=== PATIENT | male | born 1985 | race Two or more races ===

== ENCOUNTER 2019-10-17 22:09 | Emergency (ER) | payer SELFPAY ==
[~2019-10-17] VITALS: Ht 160 cm; Wt 65.8 kg
[2019-10-17 22:10] VITALS: BP 134/86
--- NOTE | 2019-10-17 22:10 | NUR ---
ED Nurse Note: Pt brought into ED by ALEJANDRA RA 28 for alochol intoxication. Per ALEJANDRA, pt was found on the grass in a neighbors yard who called 911. Pt is awake and alert and speaking in full sentences. Pt is not being cooperative with giving staff his name or any information. Pt is ambulatory with steady gait. Pt is breathing normal and unlabored, NAD noted.
--- NOTE | 2019-10-17 22:10 | NUR ---
ED Nurse Note: Pt has no complaints and denies any pain.
--- NOTE | 2019-10-17 22:15 | NUR ---
ED Nurse Note: Pt is requesting to leave ED. ERMD aware. Pt is able to ambulate with steady gait. Pt notes his friend will pick him up.
--- NOTE | 2019-10-17 22:15 | NUR ---
ED Nurse Note: Pt is refusing any further interventions.
[2019-10-17 22:30] VITALS: BP 134/86
--- NOTE | 2019-10-17 22:30 | NUR ---
ED Nurse Note: Pt is cleared to be DC by JOSE E Devries. Pt is aaox4, vital signs are stable and pt is ambulatory with steady gait. Pt walked out of ED and refused to sign paperwork. Pt is in no acute distress and took all belongings. Pt ID band removed.
--- NOTE | 2019-10-18 04:01 | Emergency Room Report ---
History of Present Illness General Chief Complaint: Alcohol Intoxication Source: Patient Present Illness HPI Notified male brought to ED for alcohol intoxication. Witnessed by bystanders as intoxicated. Brought in by EMS. Patient refusing to provide his name. Admits to alcohol use. Denies drug use. Denies nausea or vomiting. Denies abdominal pain. No other aggravating relieving factors. 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: No Patient History Past Medical History: none Past Surgical History: none Pertinent Family History: none Social History: Reports: alcohol use; Denies: smoking, drug use Immunizations: UTD Reviewed Nursing Documentation: PMH: Agreed; PSxH: Agreed Review of Systems All Other Systems: negative except mentioned in HPI Physical Exam Vital Signs Date Time Temp Pulse Resp B/P (MAP) Pulse Ox O2 Delivery O2 Flow Rate FiO2 10/17/19 21:57 98.4 82 18 134/86 (102) 98 Room Air Sp02 EP Interpretation: reviewed, normal General Appearance: no apparent distress, alert, GCS 15, non-toxic Head: normocephalic, atraumatic Eyes: bilateral eye normal inspection, bilateral eye PERRL ENT: hearing grossly normal, normal pharynx, no angioedema, normal voice Neck: full range of motion, supple/symm/no masses Respiratory: chest non-tender, lungs clear, normal breath sounds, speaking full sentences Cardiovascular #1: regular rate, rhythm, no edema Cardiovascular #2: 2+ carotid (R), 2+ carotid (L), 2+ radial (R), 2+ radial (L) , 2+ dorsalis pedis (R), 2+ dorsalis pedis (L) Gastrointestinal: normal bowel sounds, non tender, soft, non-distended, no guarding, no rebound Rectal: deferred Genitourinary: normal inspection, no CVA tenderness Musculoskeletal: back normal, normal range of motion, gait/station normal, non- tender Neurologic: alert, motor strength/tone normal, oriented x3, sensory intact, responsive, speech normal Psychiatric: judgement/insight normal, memory normal, mood/affect normal, no suicidal/homicidal ideation Reflexes: 3+ bicep (R), 3+ bicep (L), 3+ tricep (R), 3+ tricep (L), 3+ knee (R) , 3+ knee (L) Lymphatic: no adenopathy Medical Decision Making Diagnostic Impression: Primary Impression: Acute alcoholic intoxication Qualified Codes: F10.920 - Alcohol use, unspecified with intoxication, uncomplicated ER Course Hospital Course unidentified male presents to ED status post EtOH intoxication. Clinical course Patient placed on stretcher. Patient is declining blood draw or IV access. Is oriented x3. No slurring of speech. Ambulating with steady gait. I see no need to check blood work or place an IV. Patient allowed to rest in now awake alert oriented x3. ambulating without difficulty. patient is requesting discharge. safe for discharge with close outpatient followup Diagnosis - ETOH intoxication stable and discharged to home. Followup with PMD. Return to ED if symptoms recur or worsen Last Vital Signs Date Time Temp Pulse Resp B/P (MAP) Pulse Ox O2 Delivery O2 Flow Rate FiO2 10/17/19 22:30 98.4 82 18 134/86 98 Room Air Status: improved Disposition: HOME, SELF-CARE Condition: Stable Referrals: NOT CHOSEN IPA/,REFERRING (PCP) Patient Instructions: Alcohol Intoxication Darion Devries MD Oct 18, 2019 04:01
== END 2019-10-17 22:30 | disposition home or self-care (01) ==
LOC: EDBD 22:09 → EMR 22:16
DX: F10.129 Alcohol abuse with intoxication, unspecified (principal)
CPT/HCPCS: 99281